=== PATIENT | male | born 1960 | race Caucasian/White ===

== ENCOUNTER 2025-05-29 08:12 | Day surgery (SDC) | payer BC, SELFPAY ==
[2025-05-29] MEDS: LACTATED RINGERS 1,000 ML 42 ML IV (08:44)
[2025-05-29 08:46] VITALS: BP 125/74; PULSE 75; RESP 20; TEMP 36.6; O2SAT 98
--- NOTE | 2025-05-29 08:50 | PM.HP.IH.1 ---
History of Present Illness History of Present Illness Date Patient Seen: 05/29/25 Chief complaint: Screening Colonoscopy Narrative: Follow-up screening colonoscopy. Interval since last colonoscopy unknown. Possible history of polyps. Meds Home Medications and Allergies Home Medications ?Medication ?Instructions ?Recorded ?Confirmed ?Type simvastatin 40 mg tablet 40 mg PO ONCE PM 05/29/25 05/29/25 History Allergies Allergy/AdvReac Type Severity Reaction Status Date / Time tetracycline Allergy Mild Rash Verified 05/29/25 08:43 Exam Narrative Exam Narrative: Oropharynx free of lesions Chest clear to auscultation percussion Cardiac exam reveals no S3 or murmur Assessment & Plan Assessment & Plan narrative: Follow-up colonoscopy with possible history of polyps. Risks, benefits, alternatives have been explained. Time-Based Coding :: [TOTAL MINUTES] spent with patient and on the chart (including review of chart, obtaining history, exam, reviewing outside data, placing orders, documenting exam and treatment plan, and counseling patient) on [DATE]. [employer] Lab Analyst Document charge(s): No
--- NOTE | 2025-05-29 08:51 | PM.OP.COLON ---
Operative Date/Time/Diagnoses Date of procedure: 05/29/25 Time of procedure: 09:38 Pre-op diagnosis: See indication and findings Post-op diagnosis: same Procedure & Clinicians Study performed: Colonoscopy Same procedure(s) as scheduled: Yes (Screening) Indications: Screening Surgeon: Kaylene Rome Anesthesia Type: Other Procedure Notes Procedure in detail: After informed consent was obtained the patient was placed in left lateral decubitus position. The video colonoscope was introduced the rectum slowly advanced cecum. Preparation was good. On slow withdrawal mucosa was carefully examined. The scope was removed. The patient tolerated procedure well. Blood loss none Complications none Sedation mac Findings 1. Normal colonoscopy to cecum Follow-up: Colonoscopy in 5-10 years.
[2025-05-29 09:40] VITALS: BP 123/62; PULSE 70; RESP 15; TEMP 36.3; O2SAT 98
[2025-05-29 09:45] VITALS: BP 118/56; PULSE 67; RESP 11; O2SAT 100
[2025-05-29 09:50] VITALS: BP 112/59; PULSE 73; RESP 18; TEMP 36.3; O2SAT 100
[2025-05-29 09:56] VITALS: BP 126/71; PULSE 70; RESP 17; TEMP 36.3; O2SAT 100
== END 2025-05-29 10:10 | disposition home or self-care (01) ==
PROVIDERS: PCP Nurse Practitioner Family; Referring Provider Nurse Practitioner Family; Visit Provider Internal Medicine Gastroenterology
PROC: 0DJD8ZZ Inspection of Lower Intestinal Tract, Via Natural or Artificial Opening Endoscopic (ICD-10-PCS; CPT 45378; principal; 2025-05-29 09:30)
DX: Z12.11 Encounter for screening for malignant neoplasm of colon (principal)
CPT/HCPCS: 45378; J2704; J7120